=== PATIENT | male | born 1965 ===

== ENCOUNTER 2017-10-05 16:40 | Emergency (ER) | payer MEDICAID ==
--- NOTE | 2017-10-05 19:05 | C.PDOC ---
History Of Present Illness 51 y/o male with hx iddm presents to ED for refill of his insulin rx; pt sts he was released from assisted recently and hasn't been able to see a doctor yet for refills,. denies any complains, still has some medications. Time Seen by Provider: 10/05/17 18:11 Chief Complaint (Nursing): Med Refill History Per: Patient History/Exam Limitations: no limitations Past Medical History Reviewed: Historical Data, Nursing Documentation, Vital Signs Vital Signs: Last Vital Signs Temp 98.1 F 10/05/17 19:48 Pulse 72 10/05/17 19:48 Resp 18 10/05/17 19:48 BP 118/78 10/05/17 19:48 Pulse Ox 98 10/08/17 03:50 - Medical History PMH: Diabetes Family History: States: Unknown Family Hx - Social History Hx Alcohol Use: No Hx Substance Use: No - Immunization History Hx Tetanus Toxoid Vaccination: No Hx Influenza Vaccination: Yes Hx Pneumococcal Vaccination: No Review Of Systems Constitutional: Negative for: Fever, Chills Cardiovascular: Negative for: Chest Pain Respiratory: Negative for: Cough, Shortness of Breath Gastrointestinal: Negative for: Abdominal Pain Skin: Negative for: Rash Neurological: Negative for: Weakness, Numbness Physical Exam - Physical Exam Appears: Non-toxic, No Acute Distress Skin: Warm, Dry Head: Atraumatic, Normacephalic Neck: Supple Cardiovascular: Rhythm Regular, No Murmur Respiratory: No Decreased Breath Sounds, No Rales, No Rhonchi, No Wheezing Gastrointestinal/Abdominal: Bowel Sounds, Soft, No Tenderness Extremity: No Tenderness, No Calf Tenderness, No Swelling Neurological/Psych: Oriented x3, Normal Speech, Normal Cognition ED Course And Treatment O2 Sat by Pulse Oximetry: 98 Medical Decision Making Medical Decision Making: pt requesting med refills for insulin, no physical complaints, will give refill with f/u in med clinic. Disposition Counseled Patient/Family Regarding: Diagnosis, Need For Followup, Rx Given - Disposition Referrals: [facility] [Outside] [facility] [Outside] Disposition: HOME/ ROUTINE Disposition Time: 20:03 Condition: STABLE Additional Instructions: You must follow up in medical clinic as soon as possible for evaluation of your diabetes and for medication refills. Call tomorrow morning to make appointment. Prescriptions: Insulin Regular [HumuLIN R] 1 units SC BID #1 vial Insulin Human NPH [Humalin N] 10 units SC BID #1 vial Lisinopril 2.5 mg PO DAILY #30 tablet Syring-Needl,Disp,Insul,0.3 ml [Easy Touch Insulin Syringe] 1 each SC BID #1 100 Instructions: Type 1 Diabetes, Diabetes Type 1, Adult (DC) Forms: [facility] ([place]), General Discharge Instructions - Clinical Impression Clinical Impression: Medication refill
[2017-10-05 19:48] VITALS: BP 118/78; PULSE 72; RESP 18; TEMP 98.1
[2017-10-05 19:52] VITALS: O2SAT 98
== END 2017-10-05 20:08 | disposition home or self-care (01) ==
LOC: C.ER 16:40
DX: Z76.0 Encounter for issue of repeat prescription (principal)

== ENCOUNTER 2018-02-18 10:08 | Emergency (ER) | payer MEDICAID, OTHER ==
[2018-02-18 10:15] VITALS: BMI 23.6
[2018-02-18 10:18] VITALS: BP 119/72; PULSE 67; RESP 18; TEMP 98.2; O2SAT 98
--- NOTE | 2018-02-18 10:23 | C.PDOC ---
History Of Present Illness 52 year old male patient present to the ER with right ear pain that started yesterday. Patient reports that right ear hurts when he touches it. Patient denies having similar episodes before. Denies discharge, change of hearing, fever, cough, chest pain, SOB, or rash. Time Seen by Provider: 02/18/18 10:15 Chief Complaint (Nursing): ENT Problem History Per: Patient History/Exam Limitations: None Onset/Duration Of Symptoms: Hrs Current Symptoms Are (Timing): Still Present Quality (Ear): Pain W/Touch. denies: Discharge, Other (change in hearing) Past Medical History Reviewed: Historical Data, Nursing Documentation, Vital Signs Vital Signs: Last Vital Signs Temp 98.2 F 02/18/18 10:15 Pulse 67 02/18/18 10:15 Resp 18 02/18/18 10:31 BP 119/72 02/18/18 10:15 Pulse Ox 98 02/18/18 11:44 - Medical History PMH: Diabetes Family History: States: Unknown Family Hx - Social History Hx Alcohol Use: No Hx Substance Use: No - Immunization History Hx Tetanus Toxoid Vaccination: No Hx Influenza Vaccination: Yes Hx Pneumococcal Vaccination: No Review Of Systems Except As Marked, All Systems Reviewed And Found Negative. Constitutional: Negative for: Fever ENT: Positive for: Ear Pain. Negative for: Ear Discharge, Other (change in hearing) Cardiovascular: Negative for: Chest Pain Respiratory: Negative for: Cough, Shortness of Breath Skin: Negative for: Rash Physical Exam - Physical Exam Appears: Well, Non-toxic, No Acute Distress Skin: Normal Color, Warm, Dry Head: Atraumatic, Normacephalic Eye(s): bilateral: Normal Inspection, PERRL, EOMI Ear(s): Left: Normal, Right: TM Erythema (partial visual), Other (Tragus tenderness; (+) exudates in canal; no mastoid tendernes) Nose: Normal Oral Mucosa: Moist Throat: Normal, No Erythema, No Exudate Neck: Normal ROM, Supple Chest: Symmetrical Cardiovascular: Rhythm Regular Respiratory: Normal Breath Sounds, No Decreased Breath Sounds, Other (speaking in full sentences) Extremity: Normal ROM (x4) Neurological/Psych: Oriented x3, Normal Speech, No Other (focal deficits) Gait: Steady ED Course And Treatment O2 Sat by Pulse Oximetry: 98 (RA) Pulse Ox Interpretation: Normal Progress Note: Impression: 52 year old male petient with right ear pain, no rashes. Plan: -- Amoxcillin. -- Tylenol. On re-evaluation, pt remains afebrile. Tolerating po. neck supple. Instructed to follow up with ENT in 1-2 days. Reassessment Condition: Improved Disposition - Disposition Referrals: Oneil Nails MD [Staff Provider] - Shaik Dominguez MD [Staff Provider] - Disposition: HOME/ ROUTINE Disposition Time: 10:21 Condition: STABLE Additional Instructions: Follow up with the ear doctor in 1-2 days. Return to ER if symptoms persist or worsen. 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 - Scribe Statement The provider has reviewed the documentation as recorded by the Irwin Webb Do All medical record entries made by the Scribe were at my direction and personally dictated by me. I have reviewed the chart and agree that the record accurately reflects my personal performance of the history, physical exam, medical decision making, and the department course for this patient. I have also personally directed, reviewed, and agree with the discharge instructions and disposition.
== END 2018-02-18 10:32 | disposition home or self-care (01) ==
LOC: C.ER 10:08
DX: H60.90 Unspecified otitis externa, unspecified ear (principal); H66.90 Otitis media, unspecified, unspecified ear